=== PATIENT | male | born 1940 | race Caucasian/White ===

== ENCOUNTER → 2023-08-16 08:53 | Outpatient (REF) | payer OTHER, SELFPAY | LOC: RAD 08:53 | PROVIDERS: ATTENDING PHYSICIAN Family Medicine | DX: F03.90 Unspecified dementia, unspecified severity, without behavioral disturbance, psychotic disturbance, mood disturbance, and anxiety (principal); R48.2 Apraxia; M17.0 Bilateral primary osteoarthritis of knee | CPT/HCPCS: 70450 ==

== ENCOUNTER 2023-09-22 15:04 | Inpatient (IN) | payer OTHER, SELFPAY ==
[2023-09-22] VITALS (11 sets, daily range): BP systolic 138–175; BP diastolic 82–134; BMI 31.2; BMI 29.5
--- NOTE | 2023-09-22 12:04 | ED.GENMED ---
History of Present Illness
General
Chief Complaint: Anxiety
Time Seen by Provider: 09/22/23 11:12
Travel History
Have you had any contact with someone who has COVID-19?: No
Do you have any symptoms of coronavirus? Fever > 100 degrees, chills, cough, shortness of breath, sore throat, loss of taste or smell, muscle aches, or headache?: No
History of Present Illness
History of Present Illness:
83-year-old male presents emergency department for evaluation of abrupt onset of shortness of breath developing this morning upon awakening. States he feels that this is anxiety. Had similar symptoms in May. States he feels short of breath
but denies any chest pain. Does have chronic lower extremity edema that his feels is worse recently. Denies any fevers or chills.
Past History
Past History
ED Past Medical History: HTN, Hypercholesterolemia and Other (Factor V Leiden deficiency, DVT, PVD)
ED Past Surgical History: Other (hernia sx)
Social History
Tobacco: Non-smoker
Alcohol: Occasional
Drug: None
Personal:
Living: with family
Employment: Retired
Family History
Family History: Other (n/c)
Review of Systems
Review of Systems
Allergies reviewed?: Yes
All Other Systems: ROS reviewed and negative except as documented in HPI and ROS
Phy Exam
Physical Exam
Physical Exam:
GEN: Well appearing, NAD, WDWN
Eyes: PERRLA, EOMs intact, no scleral icterus
HENT: NCAT, oral mucosa moist
Lungs: CTAB, no wheezes, rales, rhonchi, normal chest wall excursion
Cardiac: Tachycardic and irregular, no M/R/G, 3+ pitting edema bilateral lower extremities radial pulses 2+ bilat
Abdomen: S, NT, ND, NABS, no masses or hepatosplenomegaly
Neuro: AO x 3, no focal deficits to BUE/BLE, normal sensation throughout
MSK: No gross deformity or ecchymosis.
Skin: No rashes, petechiae. Normal color, no pallor or jaundice.
Psych: Calm, cooperative, proper hygiene
Course
Orders/Labs/Results
Orders:
Orders
09/22/23 12:13
Electrocardiogram (*1) Urgent
Reason for Study: Shortness of Breath
EKG- Treatment ONCE
09/22/23 12:14
CR Chest - 2 Views Urgent
Comment:
Reason For Exam: SOB
09/22/23 12:18
Complete Blood Count/With Diff Urgent
09/22/23 12:44
Comprehensive Metabolic Panel Urgent
NT-proBNP Urgent
TSH Reflex To Free T4 Urgent
Comment: ADD ON
Troponin I Urgent
09/22/23 13:34
Furosemide [Lasix] 40 mg IV NOW STA
Metoprolol [Lopressor] 5 mg IV NOW STA
09/22/23 14:35
Admit/Transfer Patient As Directed
Co-Sign Provider:
Level of Care: Inpatient admission
Assign to:: IVU
Physician / Group: Hospitalist
Diagnosis: CHF,New Afib
Reason for Hospitalization: CHF,New Afib
Expected length of stay greater than two midnights?: Yes
ELOS- Estimated Length of Stay in days: 2
I certify the patient meets the requirements for IP care: Yes
09/22/23 14:37
Code Status As Directed
Resuscitation Status: Full Code
09/22/23 14:46
Echo 2D MMode Color/Doppler Routine
Reason for Study: afib
Diltiazem [Cardizem] 30 mg PO NOW STA
09/22/23 22:00
Diltiazem [Cardizem] 30 mg PO Q6H
Abnormal Lab Results
09/22/23 09/22/23
12:18 12:44
RBC 4.17 L 10^6/uL
(4.70-6.10)
Hct 38.5 L %
(39.0-52.0)
MCH 32.9 H pg
(27.0-31.0)
RDW 15.3 H %
(11.5-14.5)
BUN 22 H mg/dl
(9-20)
09/22/23 12:18
09/22/23 12:44
Vital Signs
Initial and Last Documented VS:
Initial Vital Signs
Temp Pulse Resp BP Pulse Ox
98.1 F 63 18 175/93 98
09/22/23 10:18 09/22/23 10:18 09/22/23 10:18 09/22/23 10:18 09/22/23 10:18
Last Documented Vital Signs
Temp Pulse Resp BP Pulse Ox
98.1 F 111 22 141/94 94
09/22/23 10:18 09/22/23 17:30 09/22/23 17:30 09/22/23 17:00 09/22/23 17:30
MDM/Problems Addressed
MDM/Problems Addressed:
83-year-old male presents with paroxysmal nocturnal dyspnea and anxiety. He is found to be in new onset rapid atrial fibrillation. He is already anticoagulated on Eliquis due to prior DVT. Will start the patient on beta-blockers, given that he
appears clinically in congestive heart failure will admit for IV diuresis and echocardiogram as well as cardiology consultation
Comment
Comment:
EKG independently interpreted by me shows a rapid atrial fibrillation at a rate of [address] changes concerning for ischemia. Chest x-ray independently interpreted by me shows a patchy density in the left lower lobe
*Critical Care Note
Total Time (30-74mins, 75-104mins- exclusive of procedures): Not Applicable
ED Attending Note
-
Portions of this chart may have been created with voice recognition software.� Occasional wrong word or��sound alike� substitutions may have occurred due to the inherent limitations of voice recognition software.
Discharge Plan
Departure
Patient Disposition: Admit
Date of Disposition: 09/22/23
Time of Disposition: 13:37
Admit to: Telemetry
Presentation/result/management discussed w/ accepting MD/DO: Hospitalist
Discharge Problem:
Atrial fibrillation, new onset, Acute CHF
Interventions
Interventions:
*Risk Screen - Suicide Last Done: 09/22/23 12:15
*General Assessment Last Done: 09/22/23 12:15
*Neglect/Abuse Screening Last Done: 09/22/23 12:15
ED- Fall Risk Assessment Last Done: 09/22/23 12:15
*ED COVID-19 Vaccine History Last Done: 09/22/23 10:18
ED-Psychological Assessment Last Done: 09/22/23 12:15
[2023-09-22 12:27] LABS: % Basophils 0.6 % (0-2); % Eosinophils 2.1 % (0-6); % Immature Granulocytes 0.4 % (0-0.5); % Lymphocytes 23.9 % (20.5-51.1); % Monocytes 8.8 % (1.7-9.3); % Neutrophils 64.2 % (42.2-75.2); Absolute Eosinophils 0.2 10^3/uL (0-0.7); Absolute Lymphocytes 1.7 10^3/uL (1.2-3.4); Absolute Monocytes 0.6 10^3/uL (0.1-0.6); Absolute Neutrophils 4.5 10^3/uL (1.4-6.5); Hematocrit 38.5 % (39.0-52.0); Hemoglobin 13.7 g/dL (13.0-18.0); Mean Corp Hgb Conc. 35.6 g/dL (33.0-37.0); Mean Corpuscular Hgb 32.9 pg (27.0-31.0); Mean Corpuscular Volume 92.3 fL (80.0-94.0); Mean Platelet Volume 10.2 fL (7.4-10.4); Nucleated Red Blood Cells % 0 % (-); Platelet Count 195 10^3/uL (130-400); Red Blood Cell Count 4.17 10^6/uL (4.70-6.10); Red Cell Dist. Width 15.3 % (11.5-14.5)
[2023-09-22 13:06] LABS: ALT (SGPT) 21 U/L (0-50); AST (SGOT) 25 U/L (17-59); Albumin 4.2 g/dl (3.5-5.0); Alkaline Phosphatase 84 U/L (38-126); Blood Urea Nitrogen 22 mg/dl (9-20); Calcium 9.1 mg/dl (8.4-10.2); Carbon Dioxide 28 mmol/L (22-30); Chloride 101 mmol/L (98-107); Estimated Creatinine Clearance 85 ml/min; Glucose 98 mg/dl (70-99); Sodium 138 mmol/L (135-145); Total Bilirubin 0.9 mg/dl (0.2-1.3); Total Protein 7.6 g/dl (6.3-8.2); eGFR > 60.00
[2023-09-22 13:17] LABS: NT-proBNP 1130 pg/ml; Troponin I < 0.012 ng/ml
[2023-09-22 13:23] LABS: Potassium 4.3 mmol/L (3.5-5.1)
[2023-09-22] MEDS: LOPRESSOR 5 MG IV (13:48)
[2023-09-22] MEDS: LASIX 40 MG IV (13:48)
--- NOTE | 2023-09-22 14:41 | HPS.HSE ---
Family Physician
-
Family Physician: Shaan Colin
Chief Complaint
-
Anxiety
History of Present Illness
83-year-old male present to the hospital with anxiety. Denies any chest pain. He also felt slightly short of breath. Patient is been noticing lower extremity edema he has a cough states that he has sputum but he swallows. No fever
Medical History
Past Medical History
Past Medical History: Reports Other
Additional Past Medical History:
History of DVT, hypertension, enlarged prostate, nephrolithiasis, history of skin cancer, cyanosis of the left leg, chronic venous stasis
Past Surgical History: Reports Other
Additional Past Surgical History:
Prostatectomy, left radius and ulna fracture surgery, right inguinal hernia repair, left knee surgery
Social History
Tobacco: Former Smoker
Alcohol: Daily (2 martinis and 1 beer with dinner every night)
Drug: None
Personal:
Living: With Family
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
Family History
Family History: CAD (Father) and Other (Mother of old age)
Allergies / Home Medications
Allergies reflects when Allergies were last updated in [facility].
Home Medications with original date entered in [facility]
Allergy/Medication List:
Allergies
Allergy/AdvReac Type Severity Reaction Status Date / Time
No Known Allergies Allergy Verified 09/22/23 10:19
Home Medications
amlodipine 5 mg tablet 5 mg PO HS 09/06/14
cokucohr-ski-bbitb acid 0.4 mg-lycopene 300 mcg-lutein 250 mcg tablet (Centrum Silver) 1 ea PO DAILY 09/06/14
imipramine HCl 25 mg tablet 50 mg PO HS 07/09/17
losartan 50 mg tablet 100 mg PO HS 07/09/17
polyvinyl alcohol-povidone (PF) 1.4 %-0.6 % eye drops in a dropperette (Refresh Classic (PF)) 1 drops BOTH EYES QIDPRN PRN dry eye 07/09/17
metoprolol succinate 25 mg tablet,extended release 24 hr 12.5 mg (1/2 x 25 mg) PO DAILY ##30 07/11/17
lorazepam 0.5 mg tablet (Ativan) 0.5 mg PO TID PRN anxiety #20 tabs 06/08/23
acetaminophen 500 mg tablet (Tylenol Extra Strength) 500 mg PO HS 09/22/23
apixaban 2.5 mg tablet (Eliquis) 2.5 mg PO BID 09/22/23
citalopram 20 mg tablet (Celexa) 20 mg PO DAILY 09/22/23
glucosam 750 mg-chondroi 100 mg-hyalur 1.65 mg-CF borate 108 mg tablet ([employer]) 1 tab PO DAILY 09/22/23
magnesium oxide 200 mg PO DAILY 09/22/23
Review of Systems
-
History Source: Patient
Respiratory: Reports Trouble Breathing
Cardiac: Denies Chest Pain or Palpitations
Abdomen/GI: Denies Abdominal Pain
Psych: Reports Anxiety
Physical Exam
Vital Signs
Vital Signs
Temp Pulse Resp BP Pulse Ox
98.1 F 110 26 154/90 97
09/22/23 10:18 09/22/23 13:45 09/22/23 13:45 09/22/23 13:29 09/22/23 13:45
Physical Exam
Respiratory: Rales
Cardiac: S1/S2 and Irregular Rhythm
GI: Soft, Non Tender and Normal Bowel Sounds
Musculoskeletal: Other (Pulses felt bilateral lower extremities chronic venous stasis changes bilateral legs)
Skin: Other (Cyanosis of the toes especially on the left side)
Neuro: Nonfocal/grossly intact
Psych: Anxious
Laboratory Results
-
09/22/23 12:18
09/22/23 12:44
Laboratory Results
Total Bilirubin 0.9 mg/dl (0.2-1.3) 09/22/23 12:44
AST 25 U/L (17-59) 09/22/23 12:44
ALT 21 U/L (0-50) 09/22/23 12:44
Alkaline Phosphatase 84 U/L (38-126) 09/22/23 12:44
Troponin I < 0.012 ng/ml 09/22/23 12:44
Data Reviewed
-
Diagnostic Radiology: Image Personally Visualized and interpreted (Left lower lobe consolidation, mild hyperinflation close interstitial compartment, COPD changes, hiatal hernia)
Medical Tests (Nuc Med, Echo, EKG etc): Image Personally Visualized and interpreted (EKG-A-fib with RVR, left axis deviation)
Impression/Plan
-
IMPRESSION/PLAN:
# New onset atrial fibrillation
Admit to IVU
Start Cardizem
Hold amlodipine and losartan
Already on Eliquis 2.5 twice daily-changed to 5 twice daily
Cardiology consultation
Check echo
Check TSH
# Anxiety-likely secondary to atrial fibrillation
Continue citalopram, imipramine and also as needed Ativan at bedtime
# Hypertension-hold off on losartan and amlodipine
Continue Cardizem for now
# History of DVT-continue Eliquis
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
Has seen Dr. Randle as outpatient advised to continue with elastic compression stockings
Patient has pulses felt in the dorsalis pedis bilaterally
# Daily alcohol use
2 martinis and aVF
Thiamine
MSAS protocol
# Nephrolithiasis
# DVT prophylaxis-already on Eliquis
# Full code
Discussed with at bedside
--- NOTE | 2023-09-22 15:09 | CON.CAR ---
Addendum entered and electronically signed by Tyler Davis MD 09/22/23 16:18:
I saw and examined the patient.
The PEDIATRIC CRITICAL CARE NURSE's note was reviewed and I agree with the note.
Comment: 83 y/o male with hx Factor V Leiden, DVT on Eliquis, daily ETOH, restrictive lung disease, anxiety/depression, PVD, hypertension, and SHIRA (untreated) who is here for evaluation of worsened SOB. He was found to be in A-fib with RVR and
heart failure exacerbation. He has multiple risk factors for A-fib including obstructive sleep apnea not on CPA and alcohol consumption. He does have some cognitive decline and the asked to be updated and involved in consent processes.
-TTE pending
-Continue diltiazem pending ejection fraction considered GDMT
-IV Lasix twice daily
-JAD cardioversion likely either Friday or of this week pending respiratory status
- TSH pending
Original Note:
Consultation
Consultation Request
Date/Time Consultation Requested: 09/22/23 1421
Date/Time Consultation Performed: 09/22/23 1544
Requesting Provider: Sergei MILLER
Performing Provider: Breonna EVANS for Dr. Davis
Reason for Consultation: AFIB, CHF
Medical History
-
Chief Complaint: SOB
History of Present Illness:
83 y/o male with hx Factor V Leiden, DVT on Eliquis, daily ETOH, restrictive lung disease, anxiety/depression, PVD, hypertension, and SHIRA (untreated) who is here for evaluation of worsened SOB. He has had SOB for months, but this AM it was worse.
Denies palpitations. 10-15 lb weight gain over the past year. Increased LE edema. He is seen to be in AFIB with RVR and also with suspicion for acute HF.
Past Medical History
Past Medical History: HTN, Psychiatric (anxiety, depression) and Other (factor 5 leiden, restrictive lung disease, PVD, SHIRA)
Social History
Tobacco: Non-Smoker
Alcohol: Daily (a couple of martinis and a beer daily)
Personal:
Living: With Family
Family History
Family History: CAD (dad ND and stroke in his early 50's)
Allergies / Home Medications
Allergy/AdvReac Type Severity Reaction Status Date / Time
No Known Allergies Allergy Verified 09/22/23 10:19
�Medication �Instructions �Recorded �Confirmed �Type
amlodipine 5 mg tablet 5 mg PO HS 09/06/14 09/22/23 History
lkhdqtcy-jaw-yyade acid 0.4 1 ea PO DAILY 09/06/14 09/22/23 History
mg-lycopene 300 mcg-lutein 250 mcg
tablet (Centrum Silver)
imipramine HCl 25 mg tablet 50 mg PO HS 07/09/17 09/22/23 History
losartan 50 mg tablet 100 mg PO DAILY 07/09/17 09/22/23 History
acetaminophen 500 mg tablet 500 mg PO HS 09/22/23 09/22/23 History
(Tylenol Extra Strength)
apixaban 2.5 mg tablet (Eliquis) 2.5 mg PO BID 09/22/23 09/22/23 History
citalopram 20 mg tablet (Celexa) 20 mg PO DAILY 09/22/23 09/22/23 History
glucosam 750 mg-chondroi 100 1 tab PO DAILY 09/22/23 09/22/23 History
mg-hyalur 1.65 mg-CF borate 108 mg
tablet (Move Free [employer])
lorazepam 0.5 mg tablet (Ativan) 0.25 mg PO HS 09/22/23 09/22/23 History
magnesium oxide 200 mg PO DAILY 09/22/23 09/22/23 History
Review of Systems
-
History Source: Patient
All other systems: Negative unless noted
Constitutional: Weight Gain
Respiratory: Trouble Breathing
Musculoskeletal: Edema
Physical Exam
Vital Signs
Temp Pulse Resp BP Pulse Ox
98.1 F 104 23 138/93 97
09/22/23 10:18 09/22/23 14:45 09/22/23 14:45 09/22/23 14:19 09/22/23 14:45
Lab Results
09/22/23 12:18
09/22/23 12:44
Troponin I < 0.012 ng/ml 09/22/23 12:44
Fnk-B-Jfnldgtgwxr Pept 1130 pg/ml 09/22/23 12:44
Physical Exam
General: Well Developed, Well Nourished and No Apparent Distress
HEENT: Normocephalic and Anicteric
Respiratory: Clear and Other (appears mildly short of breath after minimal exertion)
Cardiac: Irregular Rhythm
Musculoskeletal: Edema (mild BLE edema, R > L)
Skin: Warm, Dry and Other (BLE's discolored)
Neuro: AO x 3
Psych: Calm
Impression / Plan
-
AFIB with RVR:
-new diagnosis
-increase diltiazem for better rate control
-in long-term, encourage decreased ETOH, treatment for SHIRA (follow-up with pulm)- discussed with patient
-[id number] score is at least 5 for age, hypertension, CHF, PVD- will increase Eliquis to 5 mg PO BID, which is the correct dose for AFIB based on his age and weight and creatinine
-can consider JAD/CV after some diuresis
-check TSH, check echo
Acute HF, type unknown:
-patient with weight gain, elevated proBNP, orthopnea
-check echo
-plan for IV diuresis, which requires intensive monitoring
Restrictive lung disease:
-follows with pulm
Factor V Leiden/hx DVT:
-on Eliquis, but adjust dose as above
HTN:
-monitor with medicine adjustments
Data Reviewed
-
EKG: Tracing Personally Visualized and interpreted (AFIB with RVR 126 BPM)
Radiology: Report Reviewed by me (CXR 09/22/23: Airspace consolidation within the left lower lobe, most suggestive of pneumonia or atypical infection. No significant pleural effusion. 2. Mild hyperinflation, with coarsening of the interstitial
compartment, suggestive of COPD in the correct clinical setting. 3. Moderate hiatal hernia)
Medical Tests (Nuc Med, Echo etc): Other (echo ordered)
Labs: Labs Reviewed by me
[2023-09-22] MEDS: CARDIZEM 30 MG PO (15:11)
[2023-09-22 17:49] LABS: TSH Reflex To Free T4 2.81 uIU/ml (0.47-4.68)
--- NOTE | 2023-09-22 20:00 | PTCARENOTE ---
Assumed care. Patient AO x3. Mildly dyspneic with exertion POX 96% on room air. Course breath sounds, audible expiratory wheezes. A-Fib HR 106, irregular. +2 bilateral ankle and +1 leg edema. Skin on legs is brownish/red/dry. Left first three
metatarsals are slightly dusky and cool to touch, right foot warm and red. Urine collected, urinary incontinence at times, wearing a brief. Using call jain for assistance
[2023-09-22 20:09] LABS: INR 1.07; PT 13.7 Sec (11.4-14.6)
[2023-09-22 20:10] LABS: APTT 29.6 Sec (23.4-35.0)
[2023-09-22 20:18] LABS: Alcohol None Detected; GGTP 16 U/L (15-73); Magnesium 2.1 mg/dl (1.6-2.3); Phosphorus 3.4 mg/dl (2.5-4.5)
[2023-09-22 20:24] LABS: B-Hydroxybutyrate 0.79 mmol/L (0.02-0.27)
[2023-09-22] MEDS: THIAMINE INJECTION 200 MG IV (20:32)
[2023-09-22] MEDS: ELIQUIS 5 MG PO (20:32)
[2023-09-22] MEDS: ATIVAN 0.5 MG PO (22:26)
[2023-09-22] MEDS: TOFRANIL 50 MG PO (22:26)
[2023-09-22] MEDS: CARDIZEM 60 MG PO (22:26)
[2023-09-22 22:59] LABS: Urine Albumin Negative (Neg - Trace); Urine Bilirubin Negative (Negative); Urine Character Clear (Clear); Urine Color Yellow; Urine Glucose Negative (Negative); Urine Ketone Negative (Negative); Urine Leukocyte Negative (Negative); Urine Nitrite Negative (Negative); Urine Occult Blood Negative (Negative); Urine Urobilinogen Negative (Neg - 1+)
[2023-09-22 23:08] LABS: Amphetamines Negative (Negative); Barbiturates Negative (Negative); Benzodiazepines Negative (Negative); Buprenorphine Negative (Negative); Cocaine Negative (Negative); Marijuana Negative (Negative); Methadone Negative (Negative); Methamphetamines Negative (Negative); Opiates Negative (Negative); Phencyclidine Negative (Negative); Tricyclic Antidepressants Positive (Negative)
[2023-09-23 02:50] VITALS: BP 151/80
[2023-09-23] MEDS: CARDIZEM 60 MG PO (03:07)
[2023-09-23 03:09] VITALS: BMI 29.3
[2023-09-23 03:14] LABS: Hematocrit 40.3 % (39.0-52.0); Hemoglobin 13.9 g/dL (13.0-18.0); Mean Corp Hgb Conc. 34.5 g/dL (33.0-37.0); Mean Corpuscular Hgb 30.7 pg (27.0-31.0); Mean Platelet Volume 9.8 fL (7.4-10.4); Platelet Count 216 10^3/uL (130-400); Red Blood Cell Count 4.53 10^6/uL (4.70-6.10); Red Cell Dist. Width 15.1 % (11.5-14.5); White Blood Cell Count 7.4 10^3/uL (4.8-10.8)
[2023-09-23 03:30] LABS: Blood Urea Nitrogen 22 mg/dl (9-20); Calcium 8.9 mg/dl (8.4-10.2); Carbon Dioxide 25 mmol/L (22-30); Chloride 107 mmol/L (98-107); Estimated Creatinine Clearance 66 ml/min; Glucose 108 mg/dl (70-99); Magnesium 2.1 mg/dl (1.6-2.3); Potassium 3.9 mmol/L (3.5-5.1); Sodium 138 mmol/L (135-145); eGFR > 60.00
[2023-09-23 04:19] LABS: Vitamin B12 419 pg/ml (239-931)
[2023-09-23 07:31] VITALS: BP 140/90
--- NOTE | 2023-09-23 08:25 | W.PN.CD ---
Today's Communication / Plan
-
- can consider JAD/CV after further diuresis and more treatment of pneumonia
- IV diuresis: check cost of ARNI and SGLT inhibitor
- Resume ARB for now. Add low dose MRA, increase BB, stop dilt
- No plans to add SGLT inhibitor at this time given elevated hydroxybutyrate
=> repeat in AM, ?ETOH related
Impression / Plan
-
AFib with RVR:
- New, duration unknown, persisting so far
- Rate improved.
- Given abnormal LVEF will prefer more metoprolol over dilt
- Encourage decreased ETOH, treatment for SHIRA (follow-up with pulm)
- [id number] score is at least 5 (age2, HTN, HF, vascular dz (?details of PVD, prior DVT)
- Eliquis now at AFib doses (was on long-term DVT dose)
- can consider JAD/CV after some diuresis and more treatment of pneumonia
- TSH normal
Dyspnea pneumonia + HF
Pneumonia
- CXR read as LLL pneumonia => on Doxycycline
HFmidrangeEF. Echo this admit LVEF 45-50%, valaves OK
- HR control and sinus may improve
- Beta hydroxybutarate was ordered and is elevated. Not sure we will add SGLT inhibitor yet
- GDMT: HF BB, loop diuretic, RAAS (ARNI/DHRUV-I/ARB), maybe later SGLT inhibito, MRA
- IV diuresis: check cost of ARNI and SGLT inhibitor
- Resume ARB for now. Add low dose MRA, increase BB, stop dilt
- patient with weight gain, elevated proBNP, orthopnea
- plan for IV diuresis, which requires intensive monitoring
elevated hydroxybutyrate
- Not sure why it was checked
- May be best to avoid SGLT inhibition
Restrictive lung disease
Factor V Leiden/hx DVT
HTN
Memory
- Per notes wants to be involved in consent/medical care
Subjective:
Feels better
Physical Exam
Vital Signs/Labs
Vital Signs
Temp Pulse Resp BP Pulse Ox
97.5 F 76 18 151/80 98
09/23/23 07:30 09/23/23 07:30 09/23/23 07:30 09/23/23 02:50 09/23/23 07:30
09/22/23 09/23/23 09/24/23
06:59 06:59 06:59
Actual Weight 106.3 kg
09/23/23 03:05
09/23/23 03:05
PT 13.7 Sec (11.4-14.6) 09/22/23 19:44
INR 1.07 09/22/23 19:44
APTT 29.6 Sec (23.4-35.0) 09/22/23 19:44
Magnesium 2.1 mg/dl (1.6-2.3) 09/23/23 03:05
09/22/23 09/22/23
12:18 12:44
Cnx-L-Hulcrlceuqm Pept Cancelled 1130
LAB Results
09/22/23 09/22/23
12:18 12:44
Troponin I Cancelled < 0.012
Physical Exam
Constitutional: No acute distress
Cardiovascular: Rhythm/rate is irregular, S1S2 is normal and Murmur/rub/gallop absent
Respiratory: Respiratory effort normal and Rhonchi Present
GI: Soft and Distention absent
Neuro/Psych: Alert
Data Reviewed
-
Date of Service: September 23, 2023
Total Time Spent with Patient (in minutes): 55 min spent caring for pt today
[2023-09-23] MEDS: ELIQUIS 5 MG PO ×2 (08:46→20:17)
[2023-09-23] MEDS: LASIX 40 MG IV ×2 (08:46→16:13)
[2023-09-23] MEDS: VIBRAMYCIN 100 MG PO ×2 (08:46→20:17)
[2023-09-23] MEDS: THIAMINE INJECTION 200 MG IV ×2 (08:47→20:17)
[2023-09-23] MEDS: FLUSH (NSS) 1 FLUSH IV (08:50)
--- NOTE | 2023-09-23 08:52 | W.PN.HOSP.TC ---
Today's Communication/Plan
-
Lasix
Doxy
Assessment / Plan
Assessment / Plan
Echo 424-normal LV size and mildly reduced systolic function. Ejection fraction 45 to 50%. Mild diffuse global hypokinesis. Normal RV size and function. Trace AI. Dilated aortic root 4.1 cm and a centimeter to 4.4 cm.
Feeling better today
Cardiovascular system S1-S2 regular
Chest few rales at the right base
Abdomen soft and nontender
Trace pedal edema
Venous insufficiency changes
# New onset atrial fibrillation
Beta-blockers to control heart rate
Already on Eliquis 2.5 twice daily-changed to 5 twice daily
Cardiology following
Normal TSH
Echo as above
Cardioversion is being considered
# Pneumonia-treat as community-acquired pneumonia
, Doxycycline initiated
# Acute heart failure with mildly reduced ejection fraction and also atrial fibrillation with rapid rates
Lasix to diuresis
Continue beta-blockers
SGLT2 inhibitor and Arni because to being checked
ARB restarted
# Acute hypoxic respiratory insufficiency secondary to above
# Anxiety-likely secondary to atrial fibrillation
Continue citalopram, imipramine and also as needed Ativan at bedtime
# Hypertension-hold off on amlodipine
Continue beta-blockers , Diovan, Aldactone
# History of DVT-continue Eliquis
History of factor V Leyden
# Restrictive lung disease
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
Has seen Dr. Randle as outpatient advised to continue with elastic compression stockings
Patient has pulses felt in the dorsalis pedis bilaterally
# Daily alcohol use
2 martinis and a beer
Thiamine
MSAS protocol
# Nephrolithiasis
# DVT prophylaxis-already on Eliquis
# Full code
Discussed with Dr. Dickens
Dr. Dickens spoke to patient's therefore I did not call
Anticipated Discharge: 24 - 48 hours
Subjective/Interval History
-
Date of Service: September 23, 2023
Objective Data
-
Labs:
Laboratory Results
09/23/23
03:05
WBC 7.4
Hgb 13.9
Hct 40.3
Plt Count 216
Sodium 138
Potassium 3.9
Chloride 107
Carbon Dioxide 25
BUN 22 H
Creatinine 1.0
Glucose 108 H
Calcium 8.9
Vital Signs:
Vital Signs
Temp Pulse Resp BP Pulse Ox
97.5 F 76 18 151/80 98
09/23/23 07:30 09/23/23 07:30 09/23/23 07:30 09/23/23 02:50 09/23/23 07:30
I&O
09/22/23 09/23/23 09/24/23
06:59 06:59 06:59
Output Total 575 / 575
Balance -575 / -575
[2023-09-23] MEDS: ALDACTONE 12.5 MG PO (08:54)
[2023-09-23] MEDS: TOPROL XL 100 MG PO (08:54)
[2023-09-23] MEDS: THERAGRAN 1 TABLET PO (10:59)
[2023-09-23] MEDS: FOLVITE 1 MG PO (11:01)
[2023-09-23] MEDS: MAG-TAB SR 84 MG PO (11:01)
[2023-09-23] MEDS: CELEXA 20 MG PO (11:05)
[2023-09-23] MEDS: ATIVAN 1 MG PO (11:05)
--- NOTE | 2023-09-23 11:10 | CM ---
priced meds with pts pharmacy/[facility]. Jamalxiga is non-formulary, Jardiance $47/month, Entresto 49/51 $47/month. will put 30day free coupons for jardiance and entresto in pts red dc folder.
[2023-09-23 11:20] VITALS: BP 112/62
--- NOTE | 2023-09-23 14:40 | CM ---
spoke to pt in room, he is prev indep, lives with his in a 2 story home with 1 step to enter. he denies any dc planning needs or dme's. plan is for dc to home when medically stable.
[2023-09-23 15:14] VITALS: BP 138/80
[2023-09-23 19:14] VITALS: BP 121/70
--- NOTE | 2023-09-23 21:56 | PTCARENOTE ---
Assumed care, appears to be in a NSR with a first degree HB, HR 61. EKG completed and placed on chart. He is less audibly wheezy today, periodically appears short of breath. Lungs are CTA. POX 96% on room air. Left foot and toes dusky, trace ankle
edema bilaterally. at bedside, plan of care reviewed, call jain in reach
[2023-09-23] MEDS: ATIVAN 0.5 MG PO (22:19)
[2023-09-23] MEDS: TOFRANIL 50 MG PO (22:21)
[2023-09-23 22:25] VITALS: BP 163/83
[2023-09-24 04:23] VITALS: BP 142/73
[2023-09-24 04:34] VITALS: BMI 29.1
[2023-09-24 05:48] LABS: Blood Urea Nitrogen 35 mg/dl (9-20); Calcium 8.7 mg/dl (8.4-10.2); Carbon Dioxide 28 mmol/L (22-30); Chloride 104 mmol/L (98-107); Estimated Creatinine Clearance 55 ml/min; Glucose 92 mg/dl (70-99); Potassium 4.1 mmol/L (3.5-5.1); Sodium 135 mmol/L (135-145); eGFR 59.63
[2023-09-24 05:54] LABS: B-Hydroxybutyrate 0.24 mmol/L (0.02-0.27)
[2023-09-24 07:20] VITALS: BP 162/91
--- NOTE | 2023-09-24 08:00 | PTCARENOTE ---
Pt received from night custodian RN. AAOx3, resting in bed. NSR on monitor worker 60s-70s. Pt self converted from afib overnight. NPO discontinued as no need for cardioversion today. Continuing with IV diuresis this morning and will transition to PO
Lasix later today. Plan for possible discharge today. Assessment documented. Pt without complaint at this time.
[2023-09-24] MEDS: VIBRAMYCIN 100 MG PO ×2 (08:10→20:08)
[2023-09-24] MEDS: MAG-TAB SR 84 MG PO (08:10)
[2023-09-24] MEDS: DIOVAN 160 MG PO (08:10)
[2023-09-24] MEDS: THERAGRAN 1 TABLET PO (08:10)
[2023-09-24] MEDS: CELEXA 20 MG PO (08:10)
[2023-09-24] MEDS: ALDACTONE 12.5 MG PO (08:10)
[2023-09-24] MEDS: LASIX 40 MG IV ×2 (08:11→16:22)
[2023-09-24] MEDS: THIAMINE INJECTION 200 MG IV ×2 (08:11→20:08)
[2023-09-24] MEDS: FOLVITE 1 MG PO (08:11)
[2023-09-24] MEDS: ELIQUIS 5 MG PO ×2 (08:11→20:09)
[2023-09-24] MEDS: TOPROL XL 100 MG PO (08:11)
--- NOTE | 2023-09-24 09:55 | W.PN.HOSP.TC ---
Today's Communication/Plan
-
Await Cardiology plan
Diuresis
Assessment / Plan
Assessment / Plan
Echo 424-normal LV size and mildly reduced systolic function. Ejection fraction 45 to 50%. Mild diffuse global hypokinesis. Normal RV size and function. Trace AI. Dilated aortic root 4.1 cm and a centimeter to 4.4 cm.
Feeling better today
Cardiovascular system S1-S2 regular
Chest few rales left, No lower wheeze, slight upper wheeze
Abdomen soft and nontender
Trace pedal edema
Venous insufficiency changes
# New onset atrial fibrillation
In SR now
Beta-blockers to control heart rate
Already on Eliquis 2.5 twice daily-changed to 5 twice daily
Cardiology following
Normal TSH
Echo as above
# Pneumonia-treat as community-acquired pneumonia
, Doxycycline initiated
# Acute heart failure with mildly reduced ejection fraction and also atrial fibrillation with rapid rates
Lasix to diuresis
Continue beta-blockers
SGLT2 inhibitor and Arni cost being checked
ARB restarted
Weight improving.
# Acute hypoxic respiratory insufficiency secondary to above -Off O2
# Anxiety-likely secondary to atrial fibrillation
Continue citalopram, imipramine and also as needed Ativan at bedtime
#COPD - Wheezes at home and has an inhaler per .
Will add Xopenex prn
Mostly upper wheezing
# Hypertension-hold off on amlodipine
Continue beta-blockers , Diovan, Aldactone
# History of DVT-continue Eliquis
History of factor V Leyden
# Restrictive lung disease
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
Has seen Dr. Randle as outpatient advised to continue with elastic compression stockings
Patient has pulses felt in the dorsalis pedis bilaterally
# Daily alcohol use
2 martinis and a beer
Thiamine
MSAS protocol
# Nephrolithiasis
# DVT prophylaxis-already on Eliquis
# Full code
Discussed with RN
D/W at bed side
Anticipated Discharge: Within 24 hours
Subjective/Interval History
-
Date of Service: September 24, 2023
Objective Data
-
Labs:
Laboratory Results
09/24/23
04:29
Sodium 135
Potassium 4.1
Chloride 104
Carbon Dioxide 28
BUN 35 H
Creatinine 1.2
Glucose 92
Calcium 8.7
Vital Signs:
Vital Signs
Temp Pulse Resp BP Pulse Ox
97.5 F 70 18 162/91 97
09/24/23 07:00 09/24/23 08:30 09/24/23 07:00 09/24/23 08:10 09/24/23 04:23
I&O
09/23/23 09/24/23 09/25/23
06:59 06:59 06:59
Intake Total 720 / 720
Output Total 575 / 575
Balance -575 / -575 720 / 720
--- NOTE | 2023-09-24 10:03 | W.PN.CD ---
Today's Communication / Plan
-
Move to PO Lasix
OK for home on current cardiac regimen
F/u with us will be arranged
With new Aldactone plan BMP in 2 and 4 weeks
Cardiology will sign off
Impression / Plan
-
AFib with RVR:
- Converted to sinus => AFib is paroxysmal
- Using metoprolol for rate control
- Encouraged decreased ETOH, treatment for SHIRA (follow-up with pulm)
- [id number] score is at least 5 (age1, HTN, HF, vascular dz (?details of PVD, prior DVT)
- Eliquis now at AFib doses (was on long-term DVT dose)
- No need for JAD
- TSH normal
Dyspnea pneumonia + HF
Pneumonia
- CXR read as LLL pneumonia => on Doxycycline
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
- HR control and sinus may improve => now in sinus
- Beta hydroxybutyrate was ordered and is elevated. Repeat is normal. Will not add SGLT inhibitor yet
- GDMT: HF BB, loop diuretic, RAAS (ARNI/DHRUV-I/ARB), no SGLT inhibitor yet.
- IV diuresis => move to PO diuretic
- Farxiga is non-formulary, Jardiance $47/month, Entresto 49/51 $47/month (appreciate case management)
- Resume ARB for now low dose MRA, increased BB, PO diuretic
- patient with weight gain, elevated proBNP, orthopnea
elevated hydroxybutyrate => now normal
- It was checked b/c of hx of ETOH. HCO3 was fine so later may add SGLT2
- May be best to avoid SGLT inhibition
Restrictive lung disease
Factor V Leiden/hx DVT
HTN
Memory
- Per notes wants to be involved in consent/medical care
Subjective:
Feels better
Physical Exam
Vital Signs/Labs
Vital Signs
Temp Pulse Resp BP Pulse Ox
97.5 F 70 18 162/91 97
09/24/23 07:00 09/24/23 08:30 09/24/23 07:00 09/24/23 08:10 09/24/23 04:23
09/23/23 09/24/23 09/25/23
06:59 06:59 06:59
Actual Weight 106.3 kg 105.6 kg
09/23/23 03:05
09/24/23 04:29
PT 13.7 Sec (11.4-14.6) 09/22/23 19:44
INR 1.07 09/22/23 19:44
APTT 29.6 Sec (23.4-35.0) 09/22/23 19:44
Magnesium 2.1 mg/dl (1.6-2.3) 09/23/23 03:05
09/22/23 09/22/23
12:18 12:44
Aqg-Y-Ssvljyhqshx Pept Cancelled 1130
LAB Results
09/22/23 09/22/23
12:18 12:44
Troponin I Cancelled < 0.012
Physical Exam
Constitutional: No acute distress
EENT: Anicteric
Cardiovascular: Rhythm & rate is regular and Pedal edema is absent
Respiratory: Respiratory effort normal and Crackles Absent
GI: Soft and Distention absent
Neuro/Psych: AO x 3
Data Reviewed
-
Date of Service: September 24, 2023
--- NOTE | 2023-09-24 10:45 | PN.CDI ---
Addendum entered and electronically signed by Malachi David MD 09/24/23 11:12:
No plan to change any documentation
Original Note:
CDI
- -
CDI:
Physician Documentation Request
Admit Date: 09/22/23 15:04
Dear Doctor Joann,
Progress notes states Daily alcohol use. 2 martinis and a beer. Thiamine. MSAS protocol
Pt was given ativan 1 mg po on 09/22 per AUG
If possible, please provide further specificity as outlined below:
1. Please specify the pattern of use, include all that apply:
- Use, with or without abuse and/or dependence
- Abuse with or without dependence
- Dependence
2. Please identify any associated manifestations
- Withdrawal
- With substance induced psychotic disorder: with delusions and/or hallucinations
- Other, please specify
- No manifestations
Use of terms such as suspected, likely, concern for, or probable (associated with a specific diagnosis that is being evaluated, monitored, or treated as if it exists) are acceptable and can be coded in the inpatient setting, when documented at the
time of discharge.
Thank you,
Verenice Olmedo RN, BSN
CDI Specialist
tiger text
Please use your independent medical judgment in providing your response.
[2023-09-24 11:03] VITALS: BP 113/71
[2023-09-24 11:33] LABS: COVID-19 Antigen Negative (Negative)
--- NOTE | 2023-09-24 11:45 | CM ---
Addendum entered by MILA Lockwood 09/24/23 15:42:
[facility] able to accept.
Plan: Home w/ [facility]
Addendum entered by MILA Lockwood 09/24/23 14:49:
Consult rec'd for VN.
Also s/w RN regarding spouse's concern for add'l community resources.
Met w/ patient, spouse at bedside. Reviewed DC plan. Offered VN (RN, PT ian, SW ian). Both patient and spouse agreeable to referral to VN.
Referral initiated, awaiting response.
Plan: HOME w/ [facility]/if accepted.
Original Note:
CM following for DC planning needs.
Reviewed initial assessment. Pt. resides in a private, 2 st home w/ spouse. Functionally, patient is indep. w/ ADLs, mobility without use of any assisted device.
Antic. DC plan is for home, no needs.
Will follow.
--- NOTE | 2023-09-24 14:19 | W.DS.TRANS ---
DC Summary - Nursing Unit Coordinator
-
Discharge Instructions:
Discharge Diagnosis/Procedures New onset atrial fibrillation, pneumonia, heart
failure, anxiety, COPD, hypertension, history of
DVT
Diet 2 Gram Sodium,Restrict fluids to 48 oz
Activity As tolerated
Driving Restrictions As prior to admission
Blood Work Labwork- BMP in 2 and 4 weeks (lab slip
electronically sent to [facility])
Others Tests Chest x-ray in 4 to 6 weeks
Other Services VN
Specialty Instructions Weigh Daily
Instructions: *PCP/Other Instructional Technology Teacher Heart Failure Instructions
Stand-Alone Forms:
Changes to Home Medications: Yes
Discharge Medications:
DC Medications w/original date entered in [employer]
yrdohmnj-qdu-drwid acid 0.4 mg-lycopene 300 mcg-lutein 250 mcg tablet (Centrum Silver) 1 ea PO DAILY Supplement 09/06/14
imipramine HCl 25 mg tablet 50 mg PO HS Mental Health/Anxiety 07/09/17
acetaminophen 500 mg tablet (Tylenol Extra Strength) 500 mg PO HS Pain 09/22/23
citalopram 20 mg tablet (Celexa) 20 mg PO DAILY Depression 09/22/23
glucosam 750 mg-chondroi 100 mg-hyalur 1.65 mg-CF borate 108 mg tablet (Move Free Vital Metrix) 1 tab PO DAILY Supplement 09/22/23
lorazepam 0.5 mg tablet (Ativan) 0.25 mg PO HS Sleep 09/22/23
magnesium oxide 200 mg PO DAILY Supplement 09/22/23
apixaban 5 mg tablet (Eliquis) 5 mg PO BID Blood clot prevention/tx #60 tabs 09/24/23
doxycycline hyclate 100 mg capsule 100 mg PO Q12 Infection #7 caps 09/24/23
folic acid 1 mg tablet 1 mg PO DAILY Supplement #0 tabs 09/24/23
furosemide 40 mg tablet 40 mg PO DAILY Heart Failure #30 tabs 09/24/23
levalbuterol tartrate 45 mcg/actuation aerosol inhaler (Xopenex HFA) 2 inh inhalation Q6H wheezing #15 grams 09/24/23
metoprolol succinate 100 mg tablet,extended release 24 hr 100 mg PO DAILY Heart Failure #30 tabs 09/24/23
spironolactone 25 mg tablet 12.5 mg (1/2 x 25 mg) PO DAILY Heart Failure #30 tabs 09/24/23
thiamine HCl (vitamin B1) 100 mg tablet 100 mg PO BID Supplement #30 tabs 09/24/23
valsartan 80 mg tablet 160 mg (2 x 80 mg) PO DAILY Heart Failure #30 tabs 09/24/23
Home Medication Changes
new
doxycycline hyclate 100 mg capsule 100 mg PO Q12 Infection #7 caps 09/24/23
folic acid 1 mg tablet 1 mg PO DAILY Supplement #0 tabs 09/24/23
furosemide 40 mg tablet 40 mg PO DAILY Heart Failure #30 tabs 09/24/23
levalbuterol tartrate 45 mcg/actuation aerosol inhaler (Xopenex HFA) 2 inh inhalation Q6H wheezing #15 grams 09/24/23
metoprolol succinate 100 mg tablet,extended release 24 hr 100 mg PO DAILY Heart Failure #30 tabs 09/24/23
spironolactone 25 mg tablet 12.5 mg (1/2 x 25 mg) PO DAILY Heart Failure #30 tabs 09/24/23
thiamine HCl (vitamin B1) 100 mg tablet 100 mg PO BID Supplement #30 tabs 09/24/23
valsartan 80 mg tablet 160 mg (2 x 80 mg) PO DAILY Heart Failure #30 tabs 09/24/23
Dose change
Eliquis
Pending Results: No
--- NOTE | 2023-09-24 16:06 | W.PN.UPDATE ---
Update Note
Progress Note Update
sats low with exertion
Lasix 40 mg Now
Recheck in am.
[2023-09-24 16:20] VITALS: BP 141/80
[2023-09-24] MEDS: SYMBICORT 160/4.5 MCG INHALER 2 PUFF INH (19:25)
[2023-09-24] MEDS: XOPENEX 1.25 MG INHALANT SOLUTION INH (19:25)
[2023-09-24 20:10] VITALS: BP 135/71
--- NOTE | 2023-09-24 21:32 | PTCARENOTE ---
AOX3. Assessment completed as documented. See worklist. Tele- SB/SR. HR 50-60s. At handoff pt c/o difficulty breathing. pulse ox 99-100% RA. 2L O2 NC applied for comfort. Respiratory at bedside. On re-assessment pt reports relief. Currently in bed;
call jain w/in reach.
[2023-09-24 22:15] VITALS: BP 136/81
[2023-09-24] MEDS: TOFRANIL 50 MG PO (22:15)
[2023-09-24] MEDS: ATIVAN 0.5 MG PO (22:16)
[2023-09-25 05:06] VITALS: BP 136/76
[2023-09-25 05:19] VITALS: BMI 28.9
[2023-09-25 06:03] LABS: Blood Urea Nitrogen 42 mg/dl (9-20); Calcium 8.9 mg/dl (8.4-10.2); Carbon Dioxide 27 mmol/L (22-30); Chloride 102 mmol/L (98-107); Estimated Creatinine Clearance 51 ml/min; Glucose 97 mg/dl (70-99); Potassium 4.3 mmol/L (3.5-5.1); Sodium 138 mmol/L (135-145); eGFR 54.17
[2023-09-25 06:07] LABS: NT-proBNP 593 pg/ml
[2023-09-25] MEDS: XOPENEX 1.25 MG INHALANT SOLUTION INH (07:51)
[2023-09-25] MEDS: SYMBICORT 160/4.5 MCG INHALER 2 PUFF INH (07:51)
[2023-09-25 07:59] VITALS: BP 145/74
[2023-09-25] MEDS: VIBRAMYCIN 100 MG PO (08:49)
[2023-09-25] MEDS: DIOVAN 160 MG PO (08:49)
[2023-09-25] MEDS: CELEXA 20 MG PO (08:50)
[2023-09-25] MEDS: THERAGRAN 1 TABLET PO (08:50)
[2023-09-25] MEDS: ALDACTONE 12.5 MG PO (08:50)
[2023-09-25] MEDS: FOLVITE 1 MG PO (08:50)
[2023-09-25] MEDS: LASIX 40 MG PO (08:50)
[2023-09-25] MEDS: MAG-TAB SR 84 MG PO (08:50)
[2023-09-25] MEDS: ELIQUIS 5 MG PO (08:50)
[2023-09-25] MEDS: THIAMINE INJECTION 200 MG IV (08:50)
[2023-09-25] MEDS: TOPROL XL 100 MG PO (08:50)
[2023-09-25] MEDS: FLUSH (NSS) 2 FLUSH IV (08:51)
[2023-09-25 11:22] VITALS: O2SAT 90; O2SAT 97
--- NOTE | 2023-09-25 11:23 | PTCARENOTE ---
I ambulated the patient in the halls on RA. His pulse Ox at rest prior to walking was 97% on RA. He ambulated 75 feet in the jesus. At one point he stopped (about [address] our walk) and complained of being SOB. His pulse Ox at that time
was 100% on RA. We continued our walk. The lowest his pulse Ox dropped was 90% on RA while walking. He recovered to 100% on RA at rest after our walk in the halls. However he did complain of being SOB the majority of the time during our walk.
[2023-09-25 11:25] VITALS: BP 125/71
--- NOTE | 2023-09-25 11:34 | PTCARENOTE ---
The patient HR goes up to the 140's at times. V-pacing is noted on the monitor when his HR goes above 120. He has no complaint of SOB nor palpations when his HR get elevated. Metoprolol XL given as ordered.
His HR remained in the 60s while walking. At rest he's in the high 50s. Sinus norm/NSR noted on the monitor. Notified Dr. David with the results.
--- NOTE | 2023-09-25 11:42 | W.PN.HOSP.TC ---
Today's Communication/Plan
-
Discharge
Assessment / Plan
Assessment / Plan
Echo 424-normal LV size and mildly reduced systolic function. Ejection fraction 45 to 50%. Mild diffuse global hypokinesis. Normal RV size and function. Trace AI. Dilated aortic root 4.1 cm and a centimeter to 4.4 cm.
Feeling better today
Cardiovascular system S1-S2 regular
Chest No wheeze, CTA
Abdomen soft and nontender
No pedal edema
Venous insufficiency changes
# New onset atrial fibrillation
In SR now
Beta-blockers to control heart rate
Already on Eliquis 2.5 twice daily-changed to 5 twice daily
Normal TSH
Echo as above
# Pneumonia-treat as community-acquired pneumonia
Doxycycline initiated
Discussed with patient and at bedside that he needs a repeat x-ray in 4 to 6 weeks and if it is abnormal needs a CAT scan.
# Acute heart failure with mildly reduced ejection fraction and also atrial fibrillation with rapid rates
Lasix
Continue beta-blockers
SGLT2 inhibitor and Arni cost being checked
ARB restarted
Weight improving with extra Lasix
# Acute hypoxic respiratory insufficiency secondary to above -Off O2
Home oxygen evaluated-patient does not require oxygen
# Anxiety-likely secondary to atrial fibrillation
Continue citalopram, imipramine and also as needed Ativan at bedtime
#COPD - PRN Xopenex given if covered
He uses Albuterol inhaler at home.
# Hypertension-hold off on amlodipine
Continue beta-blockers , Diovan, Aldactone
# History of DVT-continue Eliquis
History of factor V Leyden
# Restrictive lung disease
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
Has seen Dr. Randle as outpatient advised to continue with elastic compression stockings
I reiterated that today
Patient has pulses felt in the dorsalis pedis bilaterally
# Daily alcohol use
2 martinis and a beer
Thiamine
MSAS protocol
# Nephrolithiasis
# DVT prophylaxis-already on Eliquis
# Full code
Discussed with RN
D/W at bed side
All the follow-up care discussed
Discharge time 37 min
Anticipated Discharge: Today
Subjective/Interval History
-
Date of Service: September 25, 2023
Objective Data
-
Labs:
Laboratory Results
09/25/23
05:17
Sodium 138
Potassium 4.3
Chloride 102
Carbon Dioxide 27
BUN 42 H
Creatinine 1.3
Glucose 97
Calcium 8.9
Vital Signs:
Vital Signs
Temp Pulse Resp BP Pulse Ox
98.4 F 60 20 125/71 96
09/25/23 11:23 09/25/23 11:25 09/25/23 11:23 09/25/23 11:25 09/25/23 11:23
I&O
09/24/23 09/25/23 09/26/23
06:59 06:59 06:59
Intake Total 720 / 720 960 / 960 180 / 180
Output Total 450 / 450
Balance 720 / 720 510 / 510 180 / 180
--- NOTE | 2023-09-25 11:42 | PTCARENOTE ---
The patient HR goes up to the 140's at times. V-pacing is noted on the monitor when his HR goes above 120. He has no complaint of SOB nor palpations when his HR get elevated. Metoprolol XL given as ordered.
--- NOTE | 2023-09-25 11:50 | W.DS.TRANS ---
Addendum entered and electronically signed by Malachi David MD 09/25/23 15:20:
Dictation- [id number]
Original Note:
DC Summary - Electronic Installer
-
Discharge Instructions:
Discharge Diagnosis/Procedures New onset atrial fibrillation, pneumonia, heart
failure, anxiety, COPD, hypertension, history of
DVT
Diet 2 Gram Sodium,Restrict fluids to 48 oz
Activity As tolerated
Driving Restrictions As prior to admission
Blood Work Labwork- BMP in 2 and 4 weeks (lab slip
electronically sent to [facility])
Others Tests Chest x-ray in 4 to 6 weeks
Other Services VN
Specialty Instructions Weigh Daily
Instructions: *PCP/Other Steam Setter Heart Failure Instructions
Stand-Alone Forms:
Changes to Home Medications: Yes
Discharge Medications:
DC Medications w/original date entered in [employer]
wuoacdeb-xdi-ixsak acid 0.4 mg-lycopene 300 mcg-lutein 250 mcg tablet (Centrum Silver) 1 ea PO DAILY Supplement 09/06/14
imipramine HCl 25 mg tablet 50 mg PO HS Mental Health/Anxiety 07/09/17
acetaminophen 500 mg tablet (Tylenol Extra Strength) 500 mg PO HS Pain 09/22/23
citalopram 20 mg tablet (Celexa) 20 mg PO DAILY Depression 09/22/23
glucosam 750 mg-chondroi 100 mg-hyalur 1.65 mg-CF borate 108 mg tablet (Move Free Ask The Doctor) 1 tab PO DAILY Supplement 09/22/23
lorazepam 0.5 mg tablet (Ativan) 0.25 mg PO HS Sleep 09/22/23
magnesium oxide 200 mg PO DAILY Supplement 09/22/23
apixaban 5 mg tablet (Eliquis) 5 mg PO BID Blood clot prevention/tx #60 tabs 09/24/23
doxycycline hyclate 100 mg capsule 100 mg PO Q12 Infection #7 caps 09/24/23
folic acid 1 mg tablet 1 mg PO DAILY Supplement #0 tabs 09/24/23
furosemide 40 mg tablet 40 mg PO DAILY Heart Failure #30 tabs 09/24/23
levalbuterol tartrate 45 mcg/actuation aerosol inhaler (Xopenex HFA) 2 inh inhalation Q6H wheezing #15 grams 09/24/23
metoprolol succinate 100 mg tablet,extended release 24 hr 100 mg PO DAILY Heart Failure #30 tabs 09/24/23
spironolactone 25 mg tablet 12.5 mg (1/2 x 25 mg) PO DAILY Heart Failure #30 tabs 09/24/23
thiamine HCl (vitamin B1) 100 mg tablet 100 mg PO BID Supplement #30 tabs 09/24/23
valsartan 80 mg tablet 160 mg (2 x 80 mg) PO DAILY Heart Failure #30 tabs 09/24/23
Home Medication Changes
new
doxycycline hyclate 100 mg capsule 100 mg PO Q12 Infection #7 caps 09/24/23
folic acid 1 mg tablet 1 mg PO DAILY Supplement #0 tabs 09/24/23
furosemide 40 mg tablet 40 mg PO DAILY Heart Failure #30 tabs 09/24/23
levalbuterol tartrate 45 mcg/actuation aerosol inhaler (Xopenex HFA) 2 inh inhalation Q6H wheezing #15 grams 09/24/23
metoprolol succinate 100 mg tablet,extended release 24 hr 100 mg PO DAILY Heart Failure #30 tabs 09/24/23
spironolactone 25 mg tablet 12.5 mg (1/2 x 25 mg) PO DAILY Heart Failure #30 tabs 09/24/23
thiamine HCl (vitamin B1) 100 mg tablet 100 mg PO BID Supplement #30 tabs 09/24/23
valsartan 80 mg tablet 160 mg (2 x 80 mg) PO DAILY Heart Failure #30 tabs 09/24/23
Dose change
Eliquis
Pending Results: No
--- NOTE | 2023-09-25 12:23 | CM ---
CM following for DC planning needs.
Met w/ patient, spouse at bedside. Plan is for DC today with [facility]. No O2 needs.
Plan: HOME w/ [facility]
--- NOTE | 2023-09-25 13:20 | SUR.OPER ---
Patient discharged home
--- NOTE | 2023-09-25 14:37 | W.HF.CON ---
Heart Failure
- LV Function
Left ventricular function study result: LV Ejection fraction >40%
Ejection Fraction Percentage: 45-50
- ARNI
Patient already on ARNI: No
Heart Failure ARNI Not Indicated: LV Ejection Fraction >/= 40%
- ACEI/ARB
Patient already on ACEI/ARB: Yes
- Beta Kendra
Patient already on Evidence Based Beta Kendra: Yes
- Mineralocorticord Receptor Antagonist
Patient already on MRA: Yes
- SGLT-2 Inhibitor
Patient already on SGLT-2 Inhibitor: No
Heart Failure SGLT-2 Inhibitor Not Indicated: LV Ejection Fraction >40%
- Afib Anticoagulation
Patient already on Anticoagulation for Afib: Yes
- NYHA CHF Classification
NYHA CHF Classification Level: Class III - Symptoms w/ min exertion, interferes w/ nml daily activity
- ACC/AHA Stage
ACC/AHA Stage: Stage C: Symptomatic Heart Failure
== END 2023-09-25 13:00 | disposition home health service (06) | DRG 193 ==
LOC: IVU 15:04
PROVIDERS: Internal Medicine Cardiovascular Disease; Physician Assistant; ADMITTING PHYSICIAN Hospitalist; EMERGENCY PHYSICIAN Emergency Medicine; FAMILY PHYSICIAN Family Medicine; OTHER PHYSICIAN Internal Medicine Cardiovascular Disease
DX: J18.9 Pneumonia, unspecified organism (principal); I50.21 Acute systolic (congestive) heart failure; D68.51 Activated protein C resistance; I48.91 Unspecified atrial fibrillation; F41.9 Anxiety disorder, unspecified; I11.0 Hypertensive heart disease with heart failure; Z87.891 Personal history of nicotine dependence; R23.0 Cyanosis; Z87.442 Personal history of urinary calculi; N20.0 Calculus of kidney; R09.02 Hypoxemia; R06.89 Other abnormalities of breathing; J98.4 Other disorders of lung; Z11.52 Encounter for screening for COVID-19
CPT/HCPCS: 71046; 80048; 80053; 80306; 81003; 82010; 82077; 82607; 82977; 83735; 83880; 84100; 84443; 84484; 85025; 85027; 85610; 85730; 87811; 93005; 93306; 94640; 96374; 96375; 99285

== ENCOUNTER → 2023-10-23 11:43 | Outpatient (REF) | payer OTHER, SELFPAY | LOC: RAD 11:43 | PROVIDERS: ATTENDING PHYSICIAN Nurse Practitioner Family | DX: Z87.01 Personal history of pneumonia (recurrent) (principal) | CPT/HCPCS: 71046 ==

== ENCOUNTER 2023-12-12 07:53 | Outpatient (RCR) | payer OTHER, SELFPAY | END 2023-12-12 23:59 | disposition home or self-care (01) | LOC: RPT 07:53 | PROVIDERS: ATTENDING PHYSICIAN Family Medicine | DX: R26.89 Other abnormalities of gait and mobility (principal) | CPT/HCPCS: 97110; 97112; 97162 ==

== ENCOUNTER 2024-01-13 10:15 | Outpatient (RCR) | payer OTHER, SELFPAY | END 2024-01-13 23:59 | disposition home or self-care (01) | LOC: RPT 10:15 | PROVIDERS: ATTENDING PHYSICIAN Family Medicine | DX: R26.89 Other abnormalities of gait and mobility (principal); M62.81 Muscle weakness (generalized); Z73.6 Limitation of activities due to disability | CPT/HCPCS: 97110; 97112 ==

== ENCOUNTER 2024-01-27 09:00 | Outpatient (RCR) | payer OTHER, SELFPAY | END 2024-01-27 11:28 | disposition home or self-care (01) | LOC: RPT 09:00 | PROVIDERS: ATTENDING PHYSICIAN Family Medicine | DX: R26.89 Other abnormalities of gait and mobility (principal) | CPT/HCPCS: 97110; 97112 ==

== ENCOUNTER → 2024-04-23 11:03 | Outpatient (REF) | payer OTHER, SELFPAY | LOC: HWRAD 11:03 | PROVIDERS: ATTENDING PHYSICIAN Nurse Practitioner Family; FAMILY PHYSICIAN Family Medicine; REFERRING PHYSICIAN Internal Medicine Cardiovascular Disease | DX: R93.89 Abnormal findings on diagnostic imaging of other specified body structures (principal) | CPT/HCPCS: 71250 ==

== ENCOUNTER 2024-05-07 11:33 | Emergency (ER) | payer OTHER, SELFPAY ==
[2024-05-07 11:42] VITALS: BP 179/85
--- NOTE | 2024-05-07 11:48 | ED.GENMED ---
History of Present Illness
General
Chief Complaint: Breathing Problem
Time Seen by Provider: 05/07/24 11:48
History of Present Illness
History of Present Illness:
TIME OF INITIAL ENCOUNTER: 11:50 AM
HPI: The patient tripped and fall coming up a step in his house and landed on the right side of his torso. He initially had more shoulder discomfort. He takes Eliquis but did not strike his head. More recently's been having increasing shortness
of breath. He does have a history of heart failure. He has no lower extremity edema and his weights have been staying around 240 pounds. In addition to Eliquis he was recently placed on Trelegy
EXAM:
GENERAL: Well appearing in no distress
HEENT: Moist oral mucosa
CARDIOVASCULAR: No murmurs, normal heart rate, regular rhythm, No chest wall tenderness
PULMONARY: No significant respiratory distress, breath sounds are clear and equal, however he does appear somewhat tachypneic with some mild conversational dyspnea however states this is somewhat chronic
ABDOMEN: Soft with no peritoneal signs, no tenderness
NEUROLOGIC: Excellent strength all extremities, no coordination deficits
PSYCHIATRIC: Seems to have some mild cognitive impairment at times but overall is answering questions appropriately
EXTREMITIES: Nontender, no edema, moves all extremities equally
SKIN: No rash, no lesions
NUMBER AND COMPLEXITY OF PROBLEMS ADDRESSED AT THE ENCOUNTER
� Chronic conditions affecting care: CHF, A-fib, mild cognitive impairment
� Acute Exacerbation and/or Progression of Chronic Illness: This is an acute problem
� Differential Diagnosis includes: PE unlikely as he is on Eliquis, CHF possible as BNP is higher than prior
AMOUNT AND/OR COMPLEXITY OF DATA TO BE REVIEWED AND ANALYZED
� I performed an independent evaluation of and my interpretation is:
EKG: Sinus 83, left axis deviation, nonspecific ST normality, borderline LVH
CT:
X-rays: Chest x-ray shows hiatal hernia, no evidence of rib fracture and the pulmonary vasculature was reportedly normal by radiology, density left base seen previously
Laboratory Studies: BNP 2300, troponin less than 0.012, hemoglobin normal, white count normal
Other:
� Review of other/old records: CT scan of the chest reviewed that showed no acute abnormality as of 04/23/2024
� Clinical information was obtained by an independent historian: I spoke to at bedside
� Prescriptions/Medications Considered but not given:
� Further testing considered but not performed:
RISK OF COMPLICATIONS AND/OR MORBIDITY OR MORTALITY OF PATIENT MANAGEMENT
� Social determinants of health affecting care: Lives at home
� Discussion with other providers:
� Escalation of care including admission/observation vs risk of discharge considered: Patient's BNP is higher than prior. He states he has been taking his Eliquis without missing doses but states that he has only been taking
half of the furosemide recently. We did talk about this possibly contributing to his dyspnea.
ANY OTHER UPDATES:
3:15 PM: I reassessed patient and without any intervention, the patient has virtually no rib pain and no shortness of breath. Patient to try to resume normal dose of furosemide as opposed to just taking half dosing
Past History
Past History
ED Past Medical History: HTN, Hypercholesterolemia and Other (Factor V Leiden deficiency, DVT, PVD)
ED Past Surgical History: Other (hernia sx)
Social History
Tobacco: Non-smoker
Alcohol: Occasional
Drug: None
Personal:
Living: with family
Employment: Retired
Family History
Family History: Other (n/c)
Phy Exam
Physical Exam
Physical Exam:
See HPI
Scores
Heart Failure Risk
Heart Failure Risk Score: Not Applicable
Course
Orders/Labs/Results
Orders:
Orders
05/07/24 11:37
EKG [Electrocardiogram (*1)] Urgent
Reason for Study: Chest Pain
EKG- Treatment ONCE
05/07/24 11:56
CR Ribs-right 3 Vw W/pa Chest* Urgent
Comment:
Reason For Exam: sob and recent R chest injury
05/07/24 12:09
Basic Metabolic Panel Urgent
Complete Blood Count/With Diff Urgent
NT-proBNP Urgent
Troponin I Urgent
Abnormal Lab Results
05/07/24
12:09
RBC 4.01 L 10^6/uL
(4.70-6.10)
Hct 38.5 L %
(39.0-52.0)
MCV 96.0 H fL
(80.0-94.0)
MCH 34.2 H pg
(27.0-31.0)
Abs Immat Gran (auto) 0.1 H 10^3/uL
(0-0.05)
Immature Gran % 0.6 H %
(0-0.5)
Lymphocytes % 19.7 L %
(20.5-51.1)
BUN 27 H mg/dl
(9-20)
Glucose 142 H mg/dl
(70-99)
05/07/24 12:09
05/07/24 12:09
Vital Signs
Initial and Last Documented VS:
Initial Vital Signs
Temp Pulse Resp BP Pulse Ox
37.0 C 83 20 179/85 95
05/07/24 11:42 05/07/24 11:42 05/07/24 11:42 05/07/24 11:42 05/07/24 11:42
Last Documented Vital Signs
Temp Pulse Resp BP Pulse Ox
37.0 C 81 18 174/72 98
05/07/24 11:42 05/07/24 15:34 05/07/24 15:34 05/07/24 15:34 05/07/24 15:34
*Critical Care Note
Total Time (30-74mins, 75-104mins- exclusive of procedures): Not Applicable
ED Attending Note
-
Portions of this chart may have been created with voice recognition software.� Occasional wrong word or��sound alike� substitutions may have occurred due to the inherent limitations of voice recognition software.
Discharge Plan
Departure
Patient Disposition: Home (Routine Discharge)
Date of Disposition: 05/07/24
Time of Disposition: 15:25
Patient with high blood pressure during this ER visit?: Yes
Discharge Problem:
Shortness of breath
Instructions: Shortness of Breath (Dyspnea) (DC)
Prescriptions:
No Action
Centrum Silver 1 EACH tablet
1 ea PO DAILY
imipramine HCl 25 MG tablet
50 mg PO HS
acetaminophen [Tylenol Extra Strength] 500 mg Tablet
500 mg PO HS
citalopram [Celexa] 20 mg Tablet
20 mg PO DAILY
Move Free [employer] 750 mg-100 mg- 1.65 mg-108 mg Tablet
1 tab PO DAILY
magnesium oxide 200 mg magnesium Tablet
200 mg PO DAILY
lorazepam [Ativan] 0.5 mg tablet
0.25 mg PO HS
furosemide 40 mg Tablet
40 mg PO DAILY Qty: 30 0RF
doxycycline hyclate 100 mg Capsule
100 mg PO Q12 Qty: 7 0RF
metoprolol succinate 100 mg Tablet Extended Release 24 Hr
100 mg PO DAILY Qty: 30 0RF
thiamine HCl (vitamin B1) 100 mg Tablet
100 mg PO BID Qty: 30 0RF
valsartan 80 mg Tablet
160 mg PO DAILY Qty: 30 0RF
spironolactone 25 mg Tablet
12.5 mg PO DAILY Qty: 30 0RF
folic acid 1 mg Tablet
1 mg PO DAILY Qty: 0 0RF
Eliquis 5 mg Tablet
5 mg PO BID Qty: 60 0RF
levalbuterol tartrate [Xopenex HFA] 45 mcg/actuation HFA aerosol inhaler
2 inh inhalation Q6H Qty: 15 0RF
Referrals:
Shaan Colin MD [Family Provider] -
Activity Restrictions/Additional Instructions:
The cause of your symptoms is unclear. Your chest x-ray did not show any new abnormality. There were no broken ribs. Based on the blood work and EKG there is no sign of heart attack. However, the blood test that we do looking for signs of
congestive heart failure is elevated, now at 2300. This is higher than prior. I recommend that you resume your normal dosing of Lasix as opposed to just taking half of the dose at least for the next day or 2 and see if this helps the shortness of
breath. Follow-up with your delivery driver/supervisor as well.
Interventions
Interventions:
*Risk Screen - Suicide Last Done: 05/07/24 11:42
*General Assessment Last Done: 05/07/24 11:42
*Neglect/Abuse Screening Last Done: 05/07/24 11:42
ED- Fall Risk Assessment Last Done: 05/07/24 11:50
ED- Cardiac Assessment Last Done: 05/07/24 11:50
ED- Pulmonary Assessment Last Done: 05/07/24 11:50
Discharge Date and Time
Print Language: SLOVAK
[2024-05-07 12:28] LABS: % Basophils 0.6 % (0-2); % Eosinophils 2.3 % (0-6); % Immature Granulocytes 0.6 % (0-0.5); % Lymphocytes 19.7 % (20.5-51.1); % Neutrophils 69.8 % (42.2-75.2); Absolute Basophils 0.1 10^3/uL (0-0.2); Absolute Eosinophils 0.2 10^3/uL (0-0.7); Absolute Immature Granulocytes 0.1 10^3/uL (0-0.05); Absolute Lymphocytes 1.7 10^3/uL (1.2-3.4); Absolute Monocytes 0.6 10^3/uL (0.1-0.6); Hematocrit 38.5 % (39.0-52.0); Hemoglobin 13.7 g/dL (13.0-18.0); Mean Corp Hgb Conc. 35.6 g/dL (33.0-37.0); Mean Corpuscular Hgb 34.2 pg (27.0-31.0); Mean Platelet Volume 10.3 fL (7.4-10.4); Nucleated Red Blood Cells % 0 % (-); Platelet Count 171 10^3/uL (130-400); Red Blood Cell Count 4.01 10^6/uL (4.70-6.10); Red Cell Dist. Width 14.4 % (11.5-14.5); White Blood Cell Count 8.6 10^3/uL (4.8-10.8)
[2024-05-07 12:41] LABS: Blood Urea Nitrogen 27 mg/dl (9-20); Calcium 8.8 mg/dl (8.4-10.2); Carbon Dioxide 25 mmol/L (22-30); Chloride 103 mmol/L (98-107); Glucose 142 mg/dl (70-99); Potassium 4.6 mmol/L (3.5-5.1); Sodium 139 mmol/L (135-145); eGFR > 60.00
[2024-05-07 12:51] LABS: NT-proBNP 2300 pg/ml; Troponin I < 0.012 ng/ml
[2024-05-07 13:34] VITALS: BP 178/83
[2024-05-07 15:34] VITALS: BP 174/72
== END 2024-05-07 16:24 | disposition home or self-care (01) ==
LOC: EMR 11:33
PROVIDERS: EMERGENCY PHYSICIAN Emergency Medicine; FAMILY PHYSICIAN Family Medicine
DX: R06.02 Shortness of breath (principal); D68.51 Activated protein C resistance; E78.00 Pure hypercholesterolemia, unspecified; I11.0 Hypertensive heart disease with heart failure; I50.9 Heart failure, unspecified; Z86.718 Personal history of other venous thrombosis and embolism
CPT/HCPCS: 99283; 71101; 80048; 83880; 84484; 85025; 93005

== ENCOUNTER 2024-08-23 13:50 | Outpatient (RCR) | payer OTHER, SELFPAY | END 2024-08-24 07:57 | disposition home or self-care (01) | LOC: RPT 13:50 | PROVIDERS: ATTENDING PHYSICIAN Family Medicine | DX: M17.0 Bilateral primary osteoarthritis of knee (principal); M54.32 Sciatica, left side; R26.89 Other abnormalities of gait and mobility; R48.2 Apraxia; Z73.6 Limitation of activities due to disability | CPT/HCPCS: 97162 ==

== ENCOUNTER → 2025-04-18 11:50 | Outpatient (REF) | payer OTHER, SELFPAY | LOC: HWRAD 11:50 | PROVIDERS: ATTENDING PHYSICIAN Internal Medicine; FAMILY PHYSICIAN Family Medicine | DX: N18.32 Chronic kidney disease, stage 3b (principal) | CPT/HCPCS: 76775 ==

== ENCOUNTER 2025-04-21 15:12 | Emergency (ER) | payer OTHER, SELFPAY ==
--- NOTE | 2025-04-21 16:17 | ED.GENMED ---
History of Present Illness
<GABY Loo Last Filed: 04/21/25 20:03>
General
Chief Complaint: Breathing Problem
Source: patient
Exam Limitations: none
Time Seen by Provider: 04/21/25 16:04
History of Present Illness
History of Present Illness:
84-year-old male presents with shortness of breath onset today at 1 PM after waking up from a nap. He has a history of COPD, CHF A-fib on Eliquis. He did use an inhaler after waking up which seemed to help his symptoms. He denies chest pain.
There is no nausea or diaphoresis. The does note that his legs are more swollen than usual and he has been gaining weight. Patient does not note any orthopnea symptoms. No fevers. No other complaints
Past History
<GABY Loo Last Filed: 04/21/25 20:03>
Past History
ED Past Medical History: HTN, Hypercholesterolemia and Other (Factor V Leiden deficiency, DVT, PVD)
ED Past Surgical History: Other (hernia sx)
Social History
Tobacco: Non-smoker
Alcohol: Occasional
Drug: None
Personal:
Living: with family
Employment: Retired
Family History
Family History: Other (n/c)
Phy Exam
<GABY Loo Last Filed: 04/21/25 20:03>
Physical Exam
Physical Exam:
General: Well-appearing male in no acute respiratory distress
HEENT: Normal cephalic atraumatic
Heart: Regular rate and rhythm lungs: Clear no obvious wheeze or rails
Extremities pitting edema bilateral lower extremities
Skin is warm no rash
Neurologic exam: Alert and oriented no facial asymmetry
Scores
<GABY Loo Last Filed: 04/21/25 20:03>
Heart Failure Risk
Heart Failure Risk Score: Not Applicable
Course
<Fritz Munguia PA-C - Last Filed: 04/21/25 20:03>
Orders/Labs/Results
Orders:
Orders
04/21/25 15:13
EKG [Electrocardiogram (*1)] Urgent
Reason for Study: Atrial Fibrillation
EKG- Treatment ONCE
04/21/25 16:15
CR Chest - 2 Views Urgent
Comment:
Reason For Exam: sob
04/21/25 16:30
Comprehensive Metabolic Panel Urgent
NT-proBNP Urgent
Troponin I Urgent
04/21/25 16:32
COVID-19 Antigen Urgent
Source: Nasal Swab
Complete Blood Count/With Diff Urgent
Influenza A+B Rapid Molecular Urgent
IRAJ Source: Nasal Swab
Specimen Description:
04/21/25 18:[address] Non Medication Order As Directed
Physician Order: Please do ambulatory pulse ox
Above order entered?: Yes
Abnormal Lab Results
04/21/25 04/21/25
16:30 16:32
RBC 4.62 L 10^6/uL
(4.70-6.10)
RDW 15.0 H %
(11.5-14.5)
Absolute Monos (auto) 0.8 H 10^3/uL
(0.1-0.6)
Monocytes % 9.4 H %
(1.7-9.3)
Sodium 134 L mmol/L
(135-145)
BUN 41 H mg/dl
(9-20)
Creatinine 1.5 H mg/dL
(0.7-1.3)
04/21/25 16:32
04/21/25 16:30
Vital Signs
Initial and Last Documented VS:
Initial Vital Signs
Temp Pulse Resp
98.2 F 79 18
04/21/25 15:20 04/21/25 15:20 04/21/25 15:20
Last Documented Vital Signs
Temp Pulse Resp BP Pulse Ox
98.2 F 79 19 141/91 97
04/21/25 15:20 04/21/25 18:15 04/21/25 18:15 04/21/25 18:00 04/21/25 18:15
<José Miguel Gillis MD - Last Filed: 04/21/25 19:33>
Orders/Labs/Results
Orders:
Orders
04/21/25 15:13
EKG [Electrocardiogram (*1)] Urgent
Reason for Study: Atrial Fibrillation
EKG- Treatment ONCE
04/21/25 16:15
CR Chest - 2 Views Urgent
Comment:
Reason For Exam: sob
04/21/25 16:30
Comprehensive Metabolic Panel Urgent
NT-proBNP Urgent
Troponin I Urgent
04/21/25 16:32
COVID-19 Antigen Urgent
Source: Nasal Swab
Complete Blood Count/With Diff Urgent
Influenza A+B Rapid Molecular Urgent
IRAJ Source: Nasal Swab
Specimen Description:
04/21/25 18:[address] Non Medication Order As Directed
Physician Order: Please do ambulatory pulse ox
Above order entered?: Yes
Abnormal Lab Results
04/21/25 04/21/25
16:30 16:32
RBC 4.62 L 10^6/uL
(4.70-6.10)
RDW 15.0 H %
(11.5-14.5)
Absolute Monos (auto) 0.8 H 10^3/uL
(0.1-0.6)
Monocytes % 9.4 H %
(1.7-9.3)
Sodium 134 L mmol/L
(135-145)
BUN 41 H mg/dl
(9-20)
Creatinine 1.5 H mg/dL
(0.7-1.3)
04/21/25 16:32
04/21/25 16:30
Vital Signs
Initial and Last Documented VS:
Initial Vital Signs
Temp Pulse Resp
98.2 F 79 18
04/21/25 15:20 04/21/25 15:20 04/21/25 15:20
Last Documented Vital Signs
Temp Pulse Resp BP Pulse Ox
98.2 F 79 19 141/91 97
04/21/25 15:20 04/21/25 18:15 04/21/25 18:15 04/21/25 18:00 04/21/25 18:15
<Fritz Munguia PA-C - Last Filed: 04/21/25 20:03>
MDM/Problems Addressed
Differential Diagnosis Includes:
Patient here with shortness of breath. Consider CHF versus COPD versus pneumonia versus pleural effusion or pulmonary embolism however pulmonary embolus is unlikely as he is anticoagulated chest x-ray, labs EKG
Pending vital signs are stable at rest
<Fritz Munguia PA-C - Last Filed: 04/21/25 20:03>
*Pulse Oximetry
Oxygen Mode of Delivery: Room air
Patient hypoxic: no
*Critical Care Note
Total Time (30-74mins, 75-104mins- exclusive of procedures): Not Applicable
<Fritz Munguia PA-C - Last Filed: 04/21/25 20:03>
Update Note
Update Note:
Patient reevaluated nontoxic overall resting comfortably without respiratory distress. Chest x-ray shows chronic scarring in the left lower lobe. No evidence of overt heart failure on x-ray or laboratory analysis. He ambulated here his oxygen
saturation did drop slightly when ambulating but there was no respiratory distress. It is likely his baseline as he has COPD. Shared decision making occurred between emergency room staff, attending and family and the decision was made to send the
patient home. He will continue using his albuterol inhaler twice a day and follow-up.
ED Attending Note
<Fritz Munguia PA-C - Last Filed: 04/21/25 20:03>
-
Portions of this chart may have been created with voice recognition software.� Occasional wrong word or��sound alike� substitutions may have occurred due to the inherent limitations of voice recognition software.
<José Miguel Gillis MD - Last Filed: 04/21/25 19:33>
ED Attending Note
Patient seen and examined by attending physician: Yes
I performed the substantive portion of visit, reviewed & personally made and approve the management plan that is documented in note by myself or SUE.: Yes
ED Attending Note:
Patient with shortness of breath after waking this afternoon. Feels better at this time. Currently at baseline per the patient and his . She states he has COPD CHF and does get short of breath with exertion normally. Denies chest pain fever
cough or other complaints
On exam patient is in no distress. Stable vital signs. Pulse ox 97% on room air. Lungs are slightly distant with a few dry crackles in the bases. No wheezing or rhonchi. No retractions. Speech is normal. Heart regular rate and rhythm no
murmur. Abdomen nontender. He has mild bilateral pitting edema.
Chest x-ray shows stable scarring. White count is normal. Renal insufficiency that has progressed slightly but is apparently known per the . proBNP is stable. Patient became mildly hypoxic with ambulation although his states he usually
does get short of breath with ambulation.
Patient is anticoagulated which makes pulmonary emboli unlikely. I do not feel he is in acute heart failure. He has no pneumonia. He is not toxic. Admission was offered for observation given his mild ambulatory hypoxia however I suspect this is
chronic. They would prefer outpatient management which is reasonable. He will increase use of his as needed albuterol and try taking this twice a day and will follow-up
Discharge Plan
Departure
Patient Disposition: Home (Routine Discharge)
Date of Disposition: 04/21/25
Time of Disposition: 20:02
Patient with high blood pressure during this ER visit?: No
Discharge Problem:
Breath shortness
Instructions: Exacerbation of COPD (DC)
Prescriptions:
No Action
Centrum Silver 1 EACH tablet
1 ea PO DAILY
imipramine HCl 25 MG tablet
50 mg PO HS
acetaminophen [Tylenol Extra Strength] 500 mg Tablet
500 mg PO HS
citalopram [Celexa] 20 mg Tablet
20 mg PO DAILY
[employer] 750 mg-100 mg- 1.65 mg-108 mg Tablet
1 tab PO DAILY
magnesium oxide 200 mg magnesium Tablet
200 mg PO DAILY
lorazepam [Ativan] 0.5 mg tablet
0.25 mg PO HS
furosemide 40 mg Tablet
40 mg PO DAILY Qty: 30 0RF
doxycycline hyclate 100 mg Capsule
100 mg PO Q12 Qty: 7 0RF
metoprolol succinate 100 mg Tablet Extended Release 24 Hr
100 mg PO DAILY Qty: 30 0RF
thiamine HCl (vitamin B1) 100 mg Tablet
100 mg PO BID Qty: 30 0RF
valsartan 80 mg Tablet
160 mg PO DAILY Qty: 30 0RF
spironolactone 25 mg Tablet
12.5 mg PO DAILY Qty: 30 0RF
folic acid 1 mg Tablet
1 mg PO DAILY Qty: 0 0RF
Eliquis 5 mg Tablet
5 mg PO BID Qty: 60 0RF
levalbuterol tartrate [Xopenex HFA] 45 mcg/actuation HFA aerosol inhaler
2 inh inhalation Q6H Qty: 15 0RF
Referrals:
Treiman,Shaan, MD [Family Provider, Family Practice]
Activity Restrictions/Additional Instructions:
Use your inhaler twice a day. Return here for worsening symptoms otherwise follow-up with your doctors
Interventions
Interventions:
*Risk Screen - Suicide Last Done: 04/21/25 15:20
*General Assessment Last Done: 04/21/25 15:20
*Neglect/Abuse Screening Last Done: 04/21/25 15:20
*ED COVID-19 Vaccine History Last Done: 04/21/25 17:00
*ED Influenza Vaccine History Last Done: 04/21/25 17:00
ED- Cardiac Assessment Last Done: 04/21/25 17:00
ED- Pulmonary Assessment Last Done: 04/21/25 17:00
Discharge Date and Time
Print Language: BANGLADESHI
[2025-04-21 16:40] LABS: Hematocrit 42.0 % (39.0-52.0); Hemoglobin 14.2 g/dL (13.0-18.0); Mean Corp Hgb Conc. 33.8 g/dL (33.0-37.0); Mean Corpuscular Volume 90.9 fL (80.0-94.0); Nucleated Red Blood Cells % 0 % (-); Platelet Count 201 10^3/uL (130-400); Red Cell Dist. Width 15.0 % (11.5-14.5)
[2025-04-21 16:56] LABS: ALT (SGPT) 18 U/L (0-50); AST (SGOT) 23 U/L (17-59); Albumin 4.3 g/dl (3.5-5.0); Alkaline Phosphatase 72 U/L (38-126); Blood Urea Nitrogen 41 mg/dl (9-20); Calcium 8.8 mg/dl (8.4-10.2); Carbon Dioxide 30 mmol/L (22-30); Chloride 101 mmol/L (98-107); Glucose 87 mg/dl (70-99); Potassium 4.3 mmol/L (3.5-5.1); Sodium 134 mmol/L (135-145); Total Protein 7.8 g/dl (6.3-8.2); eGFR 45.34
[2025-04-21 17:04] LABS: COVID-19 Antigen Negative (Negative)
[2025-04-21 17:09] LABS: Troponin I 0.025 ng/ml
[2025-04-21 17:16] VITALS: BP 152/88
[2025-04-21 17:17] VITALS: BMI 30.6
[2025-04-21 18:00] VITALS: BP 141/91
[2025-04-21 18:57] VITALS: BP 182/83
[2025-04-21 19:00] VITALS: BP 167/79
== END 2025-04-21 20:15 | disposition home or self-care (01) ==
LOC: EMR 15:12
PROVIDERS: Physician Assistant; EMERGENCY PHYSICIAN Emergency Medicine; FAMILY PHYSICIAN Family Medicine
DX: R06.02 Shortness of breath (principal); N28.9 Disorder of kidney and ureter, unspecified; J44.9 Chronic obstructive pulmonary disease, unspecified; I11.0 Hypertensive heart disease with heart failure; I50.9 Heart failure, unspecified; I48.91 Unspecified atrial fibrillation; E78.00 Pure hypercholesterolemia, unspecified; D68.51 Activated protein C resistance; I73.9 Peripheral vascular disease, unspecified; Z79.01 Long term (current) use of anticoagulants; Z86.718 Personal history of other venous thrombosis and embolism
CPT/HCPCS: 99284; 71046; 80053; 83880; 84484; 85025; 87502; 87811; 93005